=== PATIENT | female | born 1985 | race Caucasian/White ===

== ENCOUNTER 2016-11-13 19:41 | Emergency (ER) | payer BC ==
[~2016-11-13] VITALS: Ht 160 cm; Wt 56.4 kg
[2016-11-13 19:46] VITALS: BP 132/85; PULSE 77; TEMP 98.8
[2016-11-13] MEDS ORDERED: PRENATAL (19:50)
== END 2016-11-13 21:13 | disposition home or self-care (01) ==
LOC: COL.ER 19:41
DX: M79.661 Pain in right lower leg (principal)

== ENCOUNTER 2017-10-31 07:18 | Day surgery (SDC) | payer BC ==
[~2017-10-31] VITALS: Ht 160 cm; Wt 60.9 kg
[~2017-10-31 07:18] MED LIST: PRENATAL PO
[2017-10-31] MEDS ORDERED: MASON NATURAL2000 IU PO (07:23)
[2017-10-31 10:35] VITALS: BP 111/74; PULSE 75; TEMP 98.1
[2017-10-31 10:45] VITALS: BP 111/69; PULSE 66
[2017-10-31 11:00] VITALS: BP 120/86; PULSE 77
[2017-10-31 11:15] VITALS: BP 106/69; PULSE 71
[2017-10-31 11:30] VITALS: BP 99/63; PULSE 71; TEMP 98.1
== END 2017-10-31 12:00 ==
LOC: OB 09:28 → SDCO 10:15
DX: O02.1 Missed abortion (principal); Z87.59 Personal history of other complications of pregnancy, childbirth and the puerperium; Z3A.10 10 weeks gestation of pregnancy
CPT/HCPCS: OP; J1885; J2405; J2704; J3010; J7120

== ENCOUNTER 2019-05-17 08:54 | Outpatient (CLI) | payer BC ==
[~2019-05-17] VITALS: Ht 160 cm; Wt 75.0 kg
[~2019-05-17 08:54] MED LIST changes: +MASON NATURAL2000 IU PO
[2019-05-17 09:05] VITALS: BP 16/84; PULSE 93; TEMP 98.1
[2019-05-17 09:06] VITALS: BP 16/84; PULSE 93; TEMP 98.1
--- NOTE | 2019-05-17 09:44 | NUR ---
0905 PATIENT HERE WITH COMPLAINTS OF HAVING LEAKING MODERATE AMOUNT OF FLUID THIS MORNING. NO OTHER COMPLAINTS AT THIS TIME. DENIES NEEDS. EFM ON FHT 148, NO CONTRACTIONS NOTED. DR VENEGAS AT BEDSIDE TALK OPTIONS WITH PATIENT. SPEC EXAM DONE BY DR VENEGAS. AMNIOTRACE NEGATIVE. SWAB ON SLIDE NOTED TO CHECK FOR FERNING. NEGATIVE. SONOGRAM ALSO DONE AT THIS TIME. ORDERS GIVEN TO DISMISS PATIENT TO HOME TO FOLLOW UP WITH [facility].
[2019-05-17 09:49] VITALS: BP 123/83; PULSE 96
--- NOTE | 2019-05-17 10:02 | NUR ---
1000 ALL DISCHARGE INSTRUCTIONS GIVEN TO PATIENT WITH VERBAL UNDERSTANDING NOTED.
== END 2019-05-17 10:05 | disposition home or self-care (01) ==
LOC: LDRO 08:54
DX: Z34.83 Encounter for supervision of other normal pregnancy, third trimester (principal); Z3A.32 32 weeks gestation of pregnancy

== ENCOUNTER → 2020-10-22 | Outpatient (CLI) | payer BC | LOC: MC.RAD 12:55 | DX: N63.10 Unspecified lump in the right breast, unspecified quadrant (principal) ==

== ENCOUNTER 2021-09-25 09:49 | Day surgery (SDC) | payer BC ==
[~2021-09-25] VITALS: Ht 160 cm; Wt 61.1 kg
--- NOTE | 2021-09-25 10:10 | NUR ---
Patient ambulated back to bay #3 with her . No assistive devices and patient has a steady gait. Patient is emotional about procedure. had to leave to go to work but will return to give his a ride home when needed. Patient stated having to have multiple procedures like this, including x3 D/C's. Vitals obtained. PO medications administered, SEE EMAR. IV started.. SEE PHYSICAL ASSESSMENT.
--- NOTE | 2021-09-25 11:19 | NUR ---
Patient had issues with admissions: employer was incorrect, insurance card was not checked and patient was admitted under the wrong doctor. RN call admissions to get this issues fixed. Patient verifed changes on a new face sheet and stickers on consent and related paperwork.
[2021-09-25] MEDS ORDERED: IBU800 M1 PO (12:55)
[2021-09-25] MEDS ORDERED: PERCOCET 325 MG1 TA2 PO (12:55)
[2021-09-25 13:25] VITALS: BP 111/68; PULSE 80; TEMP 97
[2021-09-25 13:40] VITALS: BP 102/64; PULSE 73
--- NOTE | 2021-09-25 13:40 | NUR ---
Patient is resting in bed. Vitals obtained.
--- NOTE | 2021-09-25 13:52 | NUR ---
Patient arrived on cart from PACU, escorted by HENRY Howe. Patent is oriented and can respond meaningfully. [place] welsh continued because the patient stated she was cold. Water provided at this time and the patient is tolerating it well. She requested the lights to be turned off. Side rails x2. Call cano is at bedside. Will continue to monitor. Vitals obtained.
[2021-09-25 13:55] VITALS: BP 103/67; PULSE 79
--- NOTE | 2021-09-25 13:55 | NUR ---
Patient is sleeping in bed. Bear hugger continues. Vitals obtained. Will continue to monitor.
[2021-09-25 14:10] VITALS: BP 115/72; PULSE 80
--- NOTE | 2021-09-25 14:10 | NUR ---
has arrived. Patient was notified and lights turned back on. is in the room now, with his . Vitals obtained. Patient requested discharge.
--- NOTE | 2021-09-25 14:30 | NUR ---
Patient was assisted with ambulated to by HENRY Redmond. Patient successfully voided.
[2021-09-25 14:40] VITALS: BP 108/71; PULSE 82
--- NOTE | 2021-09-25 14:40 | NUR ---
IV discontinued at this time due to discharge. Catheter tip intact. No redness or swelling noted.
--- NOTE | 2021-09-25 14:50 | NUR ---
Discharge instructions and educational material reviewed with patient. Patient verbalized understanding and signed the related paperwork.
--- NOTE | 2021-09-25 15:00 | NUR ---
Patient was escorted out via wheelchair to the main patient entrence with her by HENRY Young. Patient has her personal belongings and discharge instructions/educational materials. Patient was transferred into the care of her Arron at this time, who is present to drive.
[2021-09-25 15:26] VITALS: BP 115/72; PULSE 86; TEMP 97.3
== END 2021-09-25 15:00 | disposition home or self-care (01) ==
LOC: SDCO 09:49
DX: O02.1 Missed abortion (principal); Z79.899 Other long term (current) drug therapy; Z87.59 Personal history of other complications of pregnancy, childbirth and the puerperium; Z79.82 Long term (current) use of aspirin
CPT/HCPCS: J0330; J1885; J2210; J2405; J2704; J3010; J7120